=== PATIENT | female | born 1985 | race Caucasian/White ===

== ENCOUNTER 2023-07-16 14:10 | Emergency (ER) | payer OTHER ==
[~2023-07-16] VITALS: Ht 167.6 cm; Wt 98.0 kg
[2023-07-16] MEDS ORDERED: ESTRACE1 MG (14:22)
[2023-07-16 19:35] VITALS: BP 137/95
== END 2023-07-16 19:36 | disposition home or self-care (01) ==
LOC: ED 14:10
DX: S93.492A Sprain of other ligament of left ankle, initial encounter (principal); J45.909 Unspecified asthma, uncomplicated; Z88.1 Allergy status to other antibiotic agents; Z88.2 Allergy status to sulfonamides; X50.1XXA Overexertion from prolonged static or awkward postures, initial encounter; Y93.A1 Activity, exercise machines primarily for cardiorespiratory conditioning
CPT/HCPCS: 73610; 99283-25

== ENCOUNTER 2023-08-01 01:42 | Emergency (ER) | payer OTHER ==
[~2023-08-01] VITALS: Ht 167.6 cm; Wt 98.8 kg
[~2023-08-01 01:42] MED LIST: ESTRACE1 MG
--- OUTSIDE RECORDS SUMMARY | 2023-08-01 01:48 | XMS ---
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 Gayatri VISIT COUNT (12 MO.) 2 [facility] TOTAL 2 NOTE: Visits indicate total known visits. ED/UCC VISIT TRACKING (12 MO.) 08/01/2023 01:42 [facility] [place] TYPE: Emergency COMPLAINT: - PELVIC PAIN 07/16/2023 14:11 [facility] [place] TYPE: Emergency COMPLAINT: - L ANKLE PAIN/ NO INJ DIAGNOSES: - Activity, exercise machines primarily for cardiorespiratory conditioning - Allergy status to other antibiotic agents - Allergy status to sulfonamides - Overexertion from prolonged static or awkward postures, initial encounter - Pain in left ankle and joints of left foot - Sprain of other ligament of left ankle, initial encounter - Unspecified asthma, uncomplicated INPATIENT VISIT TRACKING (12 MO.) No inpatient visits to display in this time frame [id number]
[2023-08-01 02:03] LABS: BASOPHILS 0.8 % (0-2); EOSINOPHILS 1.4 % (0-6); HEMATOCRIT 40.8 % (35.0-50.0); HEMOGLOBIN 13.6 g/dL (12.0-18.0); LYMPHOCYTES 48.1 % (24-44); MCHC 33.3 g/dl (30-36); NEUTROPHILS 44.7 % (39-80); PLATELET COUNT 285 K/uL (140-440); RBC 4.69 M/ul (4.3-5.7); RDW 13.9 (10.5-15.0)
[2023-08-01 02:18] LABS: ALBUMIN 3.5 g/dL (3.4-5.0); ANION GAP 13.1 (7-21); BILIRUBIN, TOTAL 0.3 ng/dL (0.2-1.0); BUN/CREATININE RATIO 19.48 (6.0-28.6); CALCIUM 8.5 mg/dL (8.5-10.1); CREATININE, SERUM 0.77 mg/dL (0.55-1.02); POTASSIUM 4.1 mmol/L (3.5-5.1)
[2023-08-01 02:36] LABS: BILIRUBIN, URINE NEGATIVE (negative); KETONE, URINE NEGATIVE (Negative)
[2023-08-01 02:37] LABS: BLOOD/HGB, URINE NEGATIVE (Negative); LEUK ESTERASE, URINE NEGATIVE (negative); NITRITE, URINE NEGATIVE (negative); PH, URINE 5.5 (5-7)
[2023-08-01 04:01] LABS: N. GONORRRHOEAE BY PCR NOT DETECTED (NOT DETECT)
[2023-08-01] MEDS ORDERED: TRAMADOL HCL50 MG PO (04:11)
[2023-08-01 04:26] VITALS: BP 151/79
== END 2023-08-01 04:26 | disposition home or self-care (01) ==
LOC: ED 01:42
PROVIDERS: Family Medicine
DX: R10.2 Pelvic and perineal pain (principal); Z88.1 Allergy status to other antibiotic agents; Z88.8 Allergy status to other drugs, medicaments and biological substances
CPT/HCPCS: 36415; 74177; 80053; 81003; 83690; 85025; A9270; J2270; J2405; J7030; Q9967

== ENCOUNTER 2024-01-16 09:10 | Emergency (ER) | payer OTHER ==
[~2024-01-16] VITALS: Ht 167.6 cm; Wt 100.8 kg
[~2024-01-16 09:10] MED LIST changes: +CALCIUM500 MG PO; +MAGNESIUM100 MG PO; +MULTI VITAMIN1 EACH PO; +ONDANSETRON ODT4 MG PO; +OSTERA TABLET1 EACH PO; +PROTONIX40 MG PO; +TRAMADOL HCL50 MG PO
--- OUTSIDE RECORDS SUMMARY | 2024-01-16 09:12 | XMS ---
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 E.D. VISIT COUNT (12 MO.) [address] [place], [place] [address]Niecy Borja) TOTAL 10 NOTE: Visits indicate total known visits. ED/UCC VISIT TRACKING (12 MO.) 01/16/2024 09:11 [facility] TYPE: Emergency COMPLAINT: - POST OP PROBLEM 01/06/2024 10:[address] [facility] (Jonh Borja) TYPE: Emergency DIAGNOSES: - Other specified diseases of gallbladder - Abdominal Pain - n/v, poss gall bladder 10/13/2023 18:02 [facility] [place] TYPE: Emergency COMPLAINT: - FLU SYMPTOMS DIAGNOSES: - Allergy status to other antibiotic agents - Allergy status to sulfonamides - Hormone replacement therapy - Nausea with vomiting, unspecified - Other intermediate (current) drug therapy - Unspecified abdominal pain - Unspecified asthma, uncomplicated 10/12/2023 22:59 [facility] (Jonh Borja) TYPE: Emergency DIAGNOSES: - Nausea - Unspecified abdominal pain - Abdominal Pain - constipation 10/12/2023 04:12 [facility] [place] TYPE: Emergency COMPLAINT: - ABD PAIN DIAGNOSES: - Allergy status to other antibiotic agents - Allergy status to sulfonamides - Hormone replacement therapy - Other intermediate (current) drug therapy - Unspecified abdominal pain - Unspecified asthma, uncomplicated 10/11/2023 10:11 [facility] [place] TYPE: Emergency COMPLAINT: - UPPER/LOWER R ABD PAIN DIAGNOSES: - Allergy status to other antibiotic agents - Allergy status to sulfonamides - Hormone replacement therapy - Other scientific database curator (current) drug therapy - Right lower quadrant pain - Right upper quadrant pain - Unspecified asthma, uncomplicated 10/04/2023 17:41 [facility] [place] TYPE: Emergency COMPLAINT: - LT WRIST INJURY DIAGNOSES: - Allergy status to other antibiotic agents - Allergy status to sulfonamides - Exposure to other specified factors, initial encounter - Hormone replacement therapy - Pain in left wrist - Unspecified asthma, uncomplicated - Unspecified sprain of left wrist, initial encounter 09/14/2023 14:48 [facility] TYPE: Emergency COMPLAINT: - VOMITING DIAGNOSES: - Allergy status to other antibiotic agents - Allergy status to sulfonamides - Gastritis, unspecified, without bleeding - USP (current) use of hormonal contraceptives - Vomiting, unspecified 08/01/2023 01:42 [facility] [place] TYPE: Emergency COMPLAINT: - PELVIC PAIN DIAGNOSES: - Allergy status to other antibiotic agents - Allergy status to other drugs, medicaments and biological substances - Pelvic and perineal pain 07/16/2023 14:[address] [facility] [place] TYPE: Emergency COMPLAINT: - L ANKLE [...] visits to display in this time frame [id number]
[2024-01-16] MEDS ORDERED: GABAPENTIN100 MG PO (10:49)
[2024-01-16] MEDS ORDERED: HYDROCODON-ACE1 EA10 PO (10:50)
[2024-01-16] MEDS ORDERED: TYLENOL EXTRA500 MG PO (10:50)
[2024-01-16 10:53] VITALS: BP 142/71
== END 2024-01-16 10:52 | disposition home or self-care (01) ==
LOC: ED 09:10
DX: L25.8 Unspecified contact dermatitis due to other agents (principal); J45.909 Unspecified asthma, uncomplicated; Z98.890 Other specified postprocedural states; Z88.1 Allergy status to other antibiotic agents; Z79.899 Other long term (current) drug therapy
CPT/HCPCS: 99282

== ENCOUNTER 2024-03-26 11:36 | Emergency (ER) | payer OTHER ==
[~2024-03-26] VITALS: Ht 167.6 cm; Wt 102.2 kg
[~2024-03-26 11:36] MED LIST changes: +GABAPENTIN100 MG PO; +HYDROCODON-ACE1 EA10 PO; +TYLENOL EXTRA500 MG PO
--- OUTSIDE RECORDS SUMMARY | 2024-03-26 11:39 | XMS ---
PreManage Notification: RALPH CABRERA Security Clinical Phlebotomist Events No recent Security Events currently on file CRITERIA MET - 6 ED Visits in 6 Months CARE PROVIDERS -, [facility] Dentist: Jute Bag Clipper [facility] PHONE: [phone] -, Ana- Dentist: Jute Bag Clipper [facility] PHONE: [phone] Dhruv has no Care Guidelines for this patient. Gayatri VISIT COUNT (12 MO.) [address] [facility] TOTAL 11 NOTE: Visits indicate total known visits. ED/UCC VISIT TRACKING (12 MO.) 03/26/2024 11:36 [facility] [place] TYPE: Emergency COMPLAINT: - VOMITING 01/16/2024 09:[address] [facility] [place] TYPE: Emergency COMPLAINT: - POST OP PROBLEM DIAGNOSES: - Allergy status to other antibiotic agents - Other prison (current) drug therapy - Other specified postprocedural states - Unspecified asthma, uncomplicated - Unspecified contact dermatitis due to other agents [facility]24 [facility] [place] [place] [facility] DIAGNOSES: - Other specified diseases of gallbladder - Abdominal Pain - n/v, poss gall bladder 10/13/2023 18:02 [facility] TYPE: Emergency COMPLAINT: - FLU SYMPTOMS DIAGNOSES: - Allergy status to other antibiotic agents - Allergy status to sulfonamides - Hormone replacement therapy - Nausea with vomiting, unspecified - Other prison (current) drug therapy - Unspecified abdominal pain - Unspecified asthma, uncomplicated 10[facility]12[facility]2023 22:[facility]: Emergency DIAGNOSES: - Nausea - Unspecified abdominal pain - Abdominal Pain - constipation 10/12/2023 04:12 [facility] TYPE: Emergency COMPLAINT: - ABD PAIN DIAGNOSES: - Allergy status to other antibiotic agents - Allergy status to sulfonamides - Hormone replacement therapy - Other prison (current) drug therapy - Unspecified abdominal pain - Unspecified asthma, uncomplicated 10/11/2023 10:11 [facility] [place] TYPE: Emergency COMPLAINT: - UPPER/LOWER R ABD PAIN DIAGNOSES: - Allergy status to other antibiotic agents - Allergy status to sulfonamides - Hormone replacement therapy - Other terminologist (current) drug therapy - Right lower quadrant [...] sulfonamides - Gastritis, unspecified, without bleeding - intermission coordinator (current) use of hormonal contraceptives - Vomiting, unspecified 08/01/2023 01:42 [facility] [place] TYPE: Emergency COMPLAINT: - PELVIC PAIN DIAGNOSES: - Allergy status to other antibiotic agents - Allergy status to other drugs, medicaments and biological substances - Pelvic and perineal pain 07/16/2023 14:11 [facility] [place] TYPE: Emergency [...] visits to display in this time frame [id number]
[2024-03-26] MEDS ORDERED: COLESTIPOL HCL1 GM PO (12:25)
[2024-03-26] MEDS ORDERED: ESTRADIOL0.5 MG PO (12:25)
[2024-03-26] MEDS ORDERED: ondansetron HCL 4 MG/2 ML VIAL IV ONE ×2 (12:30→12:45)
[2024-03-26 12:44] LABS: BASOPHILS 0.7 % (0-2); EOSINOPHILS 1.3 % (0-6); HEMOGLOBIN 14.2 g/dL (12.0-18.0); LYMPHOCYTES 33.2 % (24-44); MCH 28.8 (27-36); MCHC 33.9 g/dl (30-36); MCV 84.9 fl (81-99); MONOCYTES 4.2 % (0-12); NEUTROPHILS 60.6 % (39-80); PLATELET COUNT 299 K/uL (140-440); RBC 4.95 M/ul (4.3-5.7); RDW 13.6 (10.5-15.0)
[2024-03-26] MEDS ORDERED: HYDROmorphone HCL 1 MG/ML SYR IV ONE (12:45)
[2024-03-26] MEDS ORDERED: SODIUM CHLORIDE 0.9% 1,000 ML IV PRN (12:45)
[2024-03-26] MEDS ORDERED: PANTOPRAZOLE SODIUM 40 MG/10 ML VIAL IV ONE (12:45)
[2024-03-26 12:54] LABS: ALBUMIN 3.4 g/dL (3.4-5.0); ALBUMIN/GLOBULIN RATIO 0.94 (1.1-2.4); BILIRUBIN, TOTAL 0.5 ng/dL (0.2-1.0); BUN/CREATININE RATIO 12.34 (6.0-28.6); CALCIUM 9.1 mg/dL (8.5-10.1); CREATININE, SERUM 0.81 mg/dL (0.55-1.02)
[2024-03-26 13:38] LABS: BILIRUBIN, URINE NEGATIVE (negative); BLOOD/HGB, URINE NEGATIVE (Negative); KETONE, URINE NEGATIVE (Negative); LEUK ESTERASE, URINE NEGATIVE (negative); NITRITE, URINE NEGATIVE (negative)
[2024-03-26] MEDS ORDERED: ONDANSETRON ODT8 MG SL (15:33)
[2024-03-26 15:40] VITALS: BP 131/83
== END 2024-03-26 15:38 | disposition home or self-care (01) ==
LOC: ED 11:36
PROVIDERS: Emergency Medicine
DX: R11.2 Nausea with vomiting, unspecified (principal); R10.11 Right upper quadrant pain; Z88.1 Allergy status to other antibiotic agents; Z88.8 Allergy status to other drugs, medicaments and biological substances; Z91.09 Other allergy status, other than to drugs and biological substances
CPT/HCPCS: 36415; 74176; 80053; 81003; 83690; 85025; 96361; 96374; 96375; 99284-25; J1170; J2405; J2470; J7030

== ENCOUNTER 2024-06-09 21:07 | Emergency (ER) | payer OTHER ==
[~2024-06-09] VITALS: Ht 167.6 cm; Wt 104.0 kg
[~2024-06-09 21:07] MED LIST changes: +COLESTIPOL HCL1 GM PO; +ESTRADIOL0.5 MG PO; +ONDANSETRON ODT8 MG SL
[2024-06-09 22:10] VITALS: BP 150/97
== END 2024-06-09 22:16 | disposition home or self-care (01) ==
LOC: ED 21:07
DX: M25.561 Pain in right knee (principal); G89.29 Other chronic pain; J45.909 Unspecified asthma, uncomplicated; Z88.1 Allergy status to other antibiotic agents; Z88.8 Allergy status to other drugs, medicaments and biological substances; Z88.2 Allergy status to sulfonamides; Z79.899 Other long term (current) drug therapy
CPT/HCPCS: 73560; 99283

== ENCOUNTER 2024-12-10 18:55 | Emergency (ER) | payer OTHER ==
[~2024-12-10] VITALS: Ht 167.6 cm; Wt 112.4 kg
[2024-12-10] MEDS ORDERED: AMITRIPTYLINE H10 MG (19:28)
[2024-12-10] MEDS ORDERED: RIZATRIPTAN10 M1 (19:29)
[2024-12-10] MEDS ORDERED: MELOXICAM7.5 MG (19:29)
[2024-12-10] MEDS ORDERED: LIPITOR20 MG (19:29)
[2024-12-10] MEDS ORDERED: AMOX TR-K CLV1 EAC1 PO (20:34)
[2024-12-10] MEDS ORDERED: AMOXICILLIN/CLAVULANATE K 875 MG HOME.PACK PO ONE (20:45)
[2024-12-10 20:48] VITALS: BP 162/93
== END 2024-12-10 20:45 | disposition home or self-care (01) ==
LOC: ED 18:55
DX: S61.451A Open bite of right hand, initial encounter (principal); J45.909 Unspecified asthma, uncomplicated; E78.5 Hyperlipidemia, unspecified; Z88.1 Allergy status to other antibiotic agents; Z88.2 Allergy status to sulfonamides; W54.0XXA Bitten by dog, initial encounter
CPT/HCPCS: 99283